=== PATIENT | male | born 1970 | race Caucasian/White ===

== ENCOUNTER 2021-08-06 20:11 | Emergency (ER) | payer MEDICAID ==
[~2021-08-06] VITALS: Ht 180.3 cm; Wt 83.9 kg
[2021-08-06 20:15] VITALS: BP 145/80
--- NOTE | 2021-08-06 20:24 | NUR ---
Pt ambulated to bed 03 with steady/even gait.
--- NOTE | 2021-08-06 20:25 | NUR ---
51 y/o M BIB self from home c/o L knee pain s/p kneeling down for 30 minutes while working on vehicle. Patient A&Ox4, ambulatory, reports acute onset of left knee pain. Swelling noted to left knee, patient denies pain or medications prior to arrival. Denies LOC, fall/trauma, head/neck/back pain. VSS; respirations even/unlabored. Bed locked in lowest position, side rails x 1, call light in reach. PMH: epilepsy Meds: Carbamazapine NKA
--- NOTE | 2021-08-06 20:35 | NUR ---
RAD at bedside
--- NOTE | 2021-08-06 20:47 | NUR ---
Dr. Monsalve is evaluating patient at bedside
[2021-08-06] MEDS ORDERED: LIDOCAINE 2% 1000 MG/50 ML VIAL INJ ONE (20:50)
--- NOTE | 2021-08-06 20:55 | NUR ---
Dr. Monsalve is at bedside with Ultrasound
--- NOTE | 2021-08-06 21:00 | NUR ---
Dr. Monsalve at bedside for procedure
[2021-08-06] MEDS ORDERED: NAPR-54 PO (21:42)
== END 2021-08-06 21:47 | disposition home or self-care (01) ==
LOC: MED 20:11
DX: M70.52 Other bursitis of knee, left knee (principal); Y93.89 Activity, other specified
CPT/HCPCS: 73562; 99283; J2001; Q0092